=== PATIENT | male | born 2000 | race Caucasian/White ===

== ENCOUNTER 2023-03-10 13:40 | Emergency (ER) | payer OTHER ==
[~2023-03-10] VITALS: Ht 177.8 cm; Wt 68.2 kg
[2023-03-10 13:47] VITALS: BP 153/100; TEMP 97.4
[2023-03-10 14:29] LABS: BASO # 0.1 K/mm3 (0.0-0.2); BASO % 0.8 % (0.0-2.0); EOS # 0.4 K/mm3 (0.0-0.7); EOS % 5.2 % (0.0-4.0); GRAN # 4.2 K/mm3 (1.4-6.5); GRAN % 58.6 % (42.2-75.2); HEMATOCRIT 46.8 % (36.0-47.0); HEMOGLOBIN 16.3 g/dl (12.5-16.1); LYMPH # 1.8 K/mm3 (1.2-3.4); LYMPH % 24.8 % (20.0-51.0); MEAN CELL VOLUME 81 fl (80.0-95.0); MEAN CORPUSCULAR HEMOGLOBIN 28 pg (26-32); MEAN CORPUSCULAR HGB CONC 35 g/dl (33.0-37.0); MEAN PLATELET VOLUME 9.8 fl (7.4-10.4); MONO # 0.7 K/mm3 (0.1-0.6); MONO % 10.3 % (1.7-9.3); PLATELET COUNT 219 K/mm3 (130-400); RED BLOOD COUNT 5.78 M/mm3 (4.20-5.60); REDCELL DISTRIBUTION WIDTH-CV 11.9 % (11.5-14.5)
[2023-03-10 15:07] LABS: ALBUMIN 4.8 gm/dL (3.5-5.0); BILIRUBIN,TOTAL 0.9 mg/dL (0.2-1.2); CALCIUM 9.9 mg/dL (8.4-10.2); CREATININE, serum 1.13 mg/dL (0.72-1.25); POTASSIUM 4.2 mmol/L (3.5-4.5); TOTAL PROTEIN 7.6 gm/dL (6.2-8.1)
[2023-03-10 15:42] VITALS: PULSE 76
== END 2023-03-10 15:43 | disposition home or self-care (01) ==
LOC: COL.ER 13:40
PROVIDERS: Physician Assistant
DX: R20.2 Paresthesia of skin (principal)